=== PATIENT | male | born 1985 | race African-American/Black ===

== ENCOUNTER 2020-12-30 04:57 | Emergency (ER) | payer OTHER | END 2020-12-30 08:00 | LOC: ER1 04:57 | DX: S43.014A Anterior dislocation of right humerus, initial encounter (principal); I10 Essential (primary) hypertension; W19.XXXA Unspecified fall, initial encounter; Y92.89 Other specified places as the place of occurrence of the external cause | CPT/HCPCS: 23650; 73020; 73030; 99152; 99153; 99283; J1170; J2250; J2405 ==